=== PATIENT | male | born 1985 | race Caucasian/White ===

== ENCOUNTER 2017-02-25 09:13 | Emergency (ER) | payer SELFPAY ==
[2017-02-25 09:20] VITALS: BP 143/90
--- NOTE | 2017-02-25 09:48 | PHYS DOC ---
Past History Past Medical History: No Pertinent History Past Surgical History: No Surgical History Alcohol Use: None Drug Use: None Adult General Chief Complaint Chief Complaint: LACERATION/AVULSION HPI HPI Patient is a 31-year-old male who presents with an injury to his left great toe. He was walking barefoot outside down concrete steps and he caught the underside of his toe on a rough edge of the step and had a skin laceration/ avulsion. He denies other injury. His tetanus is not up-to-date. After it happened, he ran it under running water to clean it and has been holding pressure on it. Review of Systems Review of Systems Constitutional: Denies fever or chills [] Integument: Denies rash or skin lesions [] Current Medications Current Medications Current Medications Medications (Trade) Dose Ordered Sig/Gunnar Start Time Stop Time Status Last Admin Dose Admin Diphtheria/ Tetanus/Acell Pertussis (Boostrix) 0.5 ml ONCE ONCE 02/25/17 09:45 02/25/17 09:46 UNV Allergies Allergies Allergies Coded Allergies Type Severity Reaction Last Updated Verified No Known Drug Allergies 11/04/15 No Physical Exam Physical Exam Constitutional: Well developed, well nourished, no acute distress, non-toxic appearance. [] HENT: Normocephalic, atraumatic, bilateral external ears normal, nose normal. [ ] Eyes: conjunctiva normal, no discharge. [] Skin: Warm, dry, no erythema, no rash. [] Extremities: Left great toe: There is a flap-type avulsion of full-thickness skin from the bottom of the great toe, extending from approximately the IP crease distally. The avulsed skin is thick but does not contain deeper structures. The laceration is clean, well approximated, and hemostatic. No other injury. Neurologic: Alert and oriented X 3, normal motor function, normal sensory function, no focal deficits noted. [] Current Patient Data Vital Signs Vital Signs Date Time Temp Pulse Resp B/P (MAP) Pulse Ox O2 Delivery O2 Flow Rate FiO2 02/25/17 09:20 98.0 71 18 98 EKG EKG [] Radiology/Procedures Radiology/Procedures Procedure: Repair of laceration/avulsion of the plantar aspect of the left great toe measuring 2 cm total length The avulsed skin was already reapproximated by the patient. Dermabond and Steri- Strips were used to tape and glued the avulsed skin down. Good result. [] Course & Med Decision Making Course & Med Decision Making Pertinent Labs and Imaging studies reviewed. (See chart for details) 31-year-old male presents with partial avulsion of skin off the bottom of his great toe. After it happened, he cleaned it with running water and has been holding pressure. He states "I don't want you to clean under it, it's already clean". It does appear to be clean and I don't believe requires any further irrigation. See procedure, laceration was repaired. See instructions for plan. He was given a tetanus shot. [] Dragon Disclaimer Dragon Disclaimer This chart was dictated in whole or in part using Voice Recognition software in a busy, high-work load, and often noisy Emergency Department environment. It may contain unintended and wholly unrecognized errors or omissions. Departure Departure: Impression: Primary Impression: Laceration of left great toe w/o foreign body w/o damage to nail Disposition: 01 HOME, SELF-CARE Referrals: PCP,NO (PCP) Additional Instructions: Leave the Steri-Strips and glue on as long as possible by keeping dry and protecting with a sock at all times. If you are not wearing shoes, wear a sock. If you are wearing shoes, wear a sock. Keep mostly dry by taking a bath and elevating your foot out of the water, wash your foot with a washcloth, avoiding the area where the Steri-Strips and glue are. Today, elevate and stay off of the foot to help with pain and swelling. Ibuprofen as needed for pain. When the Steri-Strips and glue start to loosen, reinforce with a Band-Aid as long as possible. They will peel off eventually. When the skin starts to loosen and peel at the edges, trim gently with small scissors to keep it intact as long as possible. OSCAR VALENTINE MD Feb 25, 2017 09:48
[2017-02-25] MEDS ORDERED: DIPHTH,PERTUSS(ACELL),TET TOX 0.5 ML DISP.SYRIN. VAX IM ONE (09:50)
== END 2017-02-25 09:50 | disposition home or self-care (01) ==
LOC: ER 09:13
DX: S91.112A Laceration without foreign body of left great toe without damage to nail, initial encounter (principal); W22.8XXA Striking against or struck by other objects, initial encounter; Y93.01 Activity, walking, marching and hiking; Y92.89 Other specified places as the place of occurrence of the external cause; Y99.8 Other external cause status
CPT/HCPCS: 11730; 12001; 90471; 90715; 99283-25; 99284-25

== ENCOUNTER 2017-05-24 18:39 | Emergency (ER) | payer SELFPAY ==
[~2017-05-24] VITALS: Ht 190.5 cm; Wt 96.2 kg
[2017-05-24 18:50] VITALS: BP 141/70
[2017-05-24] MEDS ORDERED: BENZONATATE 100 MG CAPSULE. PO ONE (19:30)
[2017-05-24] MEDS ORDERED: ACETAMINOPHEN 500 MG TABLET PO ONE (19:30)
[2017-05-24] MEDS ORDERED: IBUPROFEN 400 MG TABLET. PO ONE (19:30)
[2017-05-24] MEDS ORDERED: BENZ100C PO (19:40)
--- NOTE | 2017-05-24 19:49 | ED.ADGEN ---
Past History Past Medical History: No Pertinent History Past Surgical History: No Surgical History Alcohol Use: None Drug Use: None Adult General HPI HPI Patient is a 31-year-old man, no significant past no history, who presents the emergency department with a complaint of cough, sore throat, headache, body aches, and low-grade fever with nasal congestion over the past several days. Patient states that his child and have just "finished having the same thing ". Patient states that he had some posttussive emesis, but his cough is dry nonproductive. He does smoke cigarettes daily. Denies any injuries, any rashes, any swelling extremities, any changes in bladder or bowel habits, any weakness, numbness, tingling, vision changes. States headache is located across the front of his head, and is much worse with coughing. He states is experiencing body aches throughout his entire back and neck. He states he last took acetaminophen this morning, more than 10 hours prior to arrival in the ED, noted to be febrile with a temperature of 100.5 arousing emergency department. He states he' s been drinking plenty of fluids. Denies any recent travel, or other concerning history. Review of Systems Review of Systems Constitutional: Fever and chills 2 days. Eyes: Denies change in visual acuity, redness, or eye pain [] HENT: Nasal congestion and sore throat.[] Respiratory: Cough, no shortness of breath, cough is nonproductive.[] Cardiovascular: No additional information not addressed in HPI [] GI: Denies abdominal pain, nausea, vomiting, bloody stools or diarrhea [] posttussive emesis. : Denies dysuria or hematuria [] Musculoskeletal: Complains of body aches. Integument: Denies rash or skin lesions [] Neurologic: Denies headache, focal weakness or sensory changes [] Endocrine: Denies polyuria or polydipsia [] Current Medications Current Medications Current Medications Medications (Trade) Dose Ordered Sig/Gunnar Start Time Stop Time Status Last Admin Dose Admin Acetaminophen (Tylenol) 1,000 mg 1X ONCE 05/24/17 19:30 05/24/17 19:31 DC 05/24/17 19:17 1,000 MG Benzonatate (Tessalon Perle) 100 mg 1X ONCE 05/24/17 19:30 05/24/17 19:31 DC 05/24/17 19:17 100 MG Fluticasone Propionate (Flonase) 2 spray 1X ONCE 05/24/17 20:00 05/24/17 20:01 DC 05/24/17 20:00 2 SPRAY Ibuprofen (Motrin) 800 mg 1X ONCE 05/24/17 19:30 05/24/17 19:31 DC 05/24/17 19:17 800 MG Allergies Allergies Allergies Coded Allergies Type Severity Reaction Last Updated Verified No Known Drug Allergies 11/04/15 No Physical Exam Physical Exam Constitutional: Well developed, well nourished, appears uncomfortable, coughing in the ED, non-toxic appearance. [] HENT: Normocephalic, atraumatic, bilateral external ears normal, oropharynx moist, no oral exudates, patient with injected oropharynx, mild post nasal drip noted, patient with turbinate swelling bilaterally, clear rhinorrhea.[] Eyes: PERRLA, EOMI, conjunctiva normal, no discharge. [] Neck: Normal range of motion, no tenderness, supple, no stridor. No meningismus. [] Cardiovascular:Heart rate regular rhythm, no murmur , S1, S2, rubs or gallops.[] Lungs & Thorax: Bilateral breath sounds clear to auscultation [] Abdomen: Bowel sounds normal, soft, no rebound, rigidity, no guarding, no tenderness, no masses, no pulsatile masses. [] Skin: Warm, dry, no erythema, no rash. [] Back: No tenderness, no CVA tenderness. [] Extremities: No tenderness, no cyanosis, no clubbing, ROM intact, no edema. Negative Homans sign.[] Neurologic: Alert and oriented X 3, normal motor function, normal sensory function, no focal deficits noted. [] Psychologic: Affect normal, judgement normal, mood normal. [] Current Patient Data Vital Signs Vital Signs Date Time Temp Pulse Resp B/P (MAP) Pulse Ox O2 Delivery O2 Flow Rate FiO2 05/24/17 19:59 98.7 05/24/17 18:50 91 20 95 Room Air EKG EKG [] Radiology/Procedures Radiology/Procedures Test x-ray: PA and lateral: 2 view: Normal cardiopulmonary silhouette, no infiltrates, no effusions, no pneumothorax, no soft tissue or bony abnormalities identified. As interpreted by me.[] Course & Med Decision Making Course & Med Decision Making Pertinent Labs and Imaging studies reviewed. (See chart for details) Patient's examination and history is consistent with a viral illness. He did not receive a flu vaccination this year. No indication for additional testing base and examination, patient did receive acetaminophen, ibuprofen, Tessalon Perle in the ED with improvement of symptoms. Chest x-ray obtained due to patient's coughing during examination was limited exam, no evidence of lower airspace disease. Discussed with patient's importance of staying well-hydrated, use [id number] medications, also of Flonase for nasal congestion, and Tessalon Perle for cough. Also discussed concerning symptoms that would prompt return, and benefits of smoking cessation. Patient does not currently have a primary care provider, list of available providers in the area was provided to him with discharge paperwork. Discharged home in stable condition with plan, prescriptions, and precautions as stated. Final Impression Final Impression [] Problems: Dragon Disclaimer Dragon Disclaimer This electronic medical record was generated, in whole or in part, using a voice recognition dictation system. Departure: Impression: Primary Impression: Viral syndrome Disposition: HOME, SELF-CARE Condition: IMPROVED Scripts Benzonatate (TESSALON PERLE) 100 Mg Capsule 100 MG PO PRN TID Y for COUGH, #12 CAP Prov: JAH ACUNA DO 05/24/17 JAH ACUNA DO May 24, 2017 19:49
[2017-05-24] MEDS ORDERED: FLUTICASONE 50MCG/NASAL SPRAY 16GM BOTTLE. NS ONE (20:00)
--- NOTE | 2017-05-25 10:01 | RAD ---
Chest, 2 views, 05/24/2017: History: Cough and fever The heart size is normal. There is mild streaky retrocardiac opacity in the left lower lobe. The right lung is clear. There is no evidence of pleural fluid. IMPRESSION: Mild left basilar atelectasis and/or pneumonitis. Note: The findings were given to personnel in the [facility] ER at 9:58 AM on 05/25/2017.
== END 2017-05-24 20:00 | disposition home or self-care (01) ==
LOC: ER 18:39
DX: B34.9 Viral infection, unspecified (principal); F17.210 Nicotine dependence, cigarettes, uncomplicated
CPT/HCPCS: 71020; 99284

== ENCOUNTER 2018-02-16 15:43 | Emergency (ER) | payer SELFPAY ==
[~2018-02-16] VITALS: Ht 190.5 cm; Wt 100.7 kg
[~2018-02-16 15:43] MED LIST: BENZ100C PO
[2018-02-16 15:56] VITALS: BP 121/85
[2018-02-16] MEDS ORDERED: IBUP400T18 PO (16:03)
[2018-02-16] MEDS ORDERED: PENI500T PO (16:03)
--- NOTE | 2018-02-16 16:04 | PHYS DOC ---
Past History Past Medical History: No Pertinent History Past Surgical History: No Surgical History Alcohol Use: None Drug Use: None Adult General Chief Complaint Chief Complaint: DENTAL PROBLEM HPI HPI 32-year-old male presenting with dental pain. The pain is a throbbing pain moderate present for 2-3 days. Nonradiating. No trismus. No tongue swelling. Review of systems is negative for stridor difficulty swallowing fevers chills neck stiffness. All other review of systems is negative unless otherwise noted in history of present illness. ED course: 32-year-old male presenting with dental pain. Well-appearing on examination. No peritonsillar abscess tongue swelling drooling or airway compromise on examination. We will discharge the patient to follow-up with the dentist today or tomorrow.The patient has been examined and was not found to have an emergency medical condition. The patient was then discharged home in stable condition to follow up with a dentist. They were to return if their symptoms worsened or if they were concerned for any reason. They were also instructed to return to the emergency department if they were unable to get the recommended and appropriate follow-up. [id number] discharge instructions and return precautions were given. Patient's questions were answered to their satisfaction. Patient is comfortable with plan. Review of Systems Review of Systems SEE ABOVE. Allergies Allergies Allergies Coded Allergies Type Severity Reaction Last Updated Verified No Known Drug Allergies 11/04/15 No Physical Exam Physical Exam SEE ABOVE Constitutional: Well developed, well nourished, no acute distress, non-toxic appearance. [] HENT: Normocephalic, atraumatic, bilateral external ears normal, oropharynx moist, no oral exudates, nose normal. Eyes: PERRLA, EOMI, conjunctiva normal, no discharge. [] Neck: Normal range of motion, no tenderness, supple, no stridor. Cardiovascular:Heart rate regular rhythm, no murmur [] Lungs & Thorax: Bilateral breath sounds clear to auscultation Abdomen: Bowel sounds normal, soft, no tenderness, no masses, no pulsatile masses. [] Skin: Warm, dry, no erythema, no rash. [] Back: No tenderness, no CVA tenderness. Extremities: No tenderness, no cyanosis, no clubbing, ROM intact, no edema. Neurologic: Alert and oriented X 3, normal motor function, normal sensory function, no focal deficits noted. [] Psychologic: Affect normal, judgement normal, mood normal. [] Current Patient Data Vital Signs Vital Signs Date Time Temp Pulse Resp B/P (MAP) Pulse Ox O2 Delivery O2 Flow Rate FiO2 02/16/18 15:56 96.8 75 16 96 Room Air EKG EKG [] Radiology/Procedures Radiology/Procedures [] Course & Med Decision Making Course & Med Decision Making Pertinent Labs and Imaging studies reviewed. (See chart for details) [] Dragon Disclaimer Dragon Disclaimer This electronic medical record was generated, in whole or in part, using a voice recognition dictation system. Departure Departure: Impression: Primary Impression: Pain, dental Disposition: HOME, SELF-CARE Condition: STABLE Referrals: PCP,NO (PCP) Patient Instructions: Dental Pain, [id number] Additional Instructions: [facility] [address] [address] General Clinic Follow-up with [facility] today or tomorrow. Thank you for allowing us to participate in your care today. Return to the emergency department you have any new or worsening symptoms, or if you are concerned for any reason. Return to emergency department if you have any new or concerning symptoms including but not limited to fever, chills, nausea, vomiting, intractable pain, any new rashes, chest pain, shortness of air , uncontrolled bleeding, difficulty breathing, and/or vision loss. Follow up as above. Call your Primary Doctor tomorrow and inform them of your visit today. If you do not have a primary care provider we are happy to provide you with a list of our primary care providers contact information. This condition should be evaluated by your primary care physician and any recommended consulting services for continued management within 2-3 days after discharge. If at any time, you are having difficulty getting into your primary care doctor or a specialist, return to the emergency department. Scripts Penicillin V Potassium (PENICILLIN V POTASSIUM) 500 Mg Tablet 1 TAB PO BID, #10 TAB 0 Refills Prov: GIFTY MCCONNELL MD 02/16/18 Ibuprofen (IBUPROFEN) 400 Mg Tablet 1 TAB PO PRN Q8HRS PRN for PAIN, #20 TAB Prov: GIFTY MCCONNELL MD 02/16/18 GIFTY MCCONNELL MD Feb 16, 2018 16:03
== END 2018-02-16 17:02 | disposition home or self-care (01) ==
LOC: ER 15:43
DX: K08.89 Other specified disorders of teeth and supporting structures (principal)
CPT/HCPCS: 99283

== ENCOUNTER 2018-02-24 18:25 | Emergency (ER) | payer SELFPAY ==
[~2018-02-24] VITALS: Ht 190.5 cm; Wt 100.2 kg
[~2018-02-24 18:25] MED LIST changes: +IBUP400T18 PO; +PENI500T PO
[2018-02-24 18:28] VITALS: BP 126/78
--- NOTE | 2018-02-24 18:39 | ED.ADGEN ---
Past History Past Medical History: No Pertinent History Past Surgical History: No Surgical History Alcohol Use: None Drug Use: None Adult General Chief Complaint Chief Complaint ".. My Lt ear hurts.. and I think the Ear drum ruptured on lt....its got fluid and blood coming out...".." I ve been swimming a lot more... probably got an ear infection... I had ear tubes twice when I was a kid..." HPI HPI Patient is a 32 year old male who presents with above hx and complaints of left ear pain with eventual drainage of blood and fluid from left ear. Drainage started today after marked increase in pain in Lt ear. Patient recently seen for dental caries and pain and recently include a course of amoxicillin. On exam patient does have decreased air conduction to left ear. Has external otitis as well as a ruptured TM on the left. Air-conduction more than bone conduction on right. Lateralization to the left on bone conduction. Patient denies any history of immunosuppression. Patient is normally healthy. Does have history dental caries. Patient does still smoke. No recent travel. No specific ill contacts. Patient does not maintain a primary care for follow-up. Review of Systems Review of Systems Constitutional: Denies fever or chills [] Eyes: Denies change in visual acuity, redness, or eye pain [] HENT: Denies nasal congestion or sore throat []complaints of left ear pain and drainage Respiratory: Denies cough or shortness of breath [] Cardiovascular: No additional information not addressed in HPI [] GI: Denies abdominal pain, nausea, vomiting, bloody stools or diarrhea [] : Denies dysuria or hematuria [] Musculoskeletal: Denies back pain or joint pain [] Integument: Denies rash or skin lesions [] Neurologic: Denies headache, focal weakness or sensory changes [] Endocrine: Denies polyuria or polydipsia [] All other systems were reviewed and found to be within normal limits, except as documented in this note. Family History Family History Noncontributory Current Medications Current Medications Current Medications Medications (Trade) Dose Ordered Sig/Gunnar Start Time Stop Time Status Last Admin Dose Admin Hydrocodone Bitartrate/ Ibuprofen (Vicoprofen 7.5-200) 1 tab 1X ONCE 02/24/18 19:30 02/24/18 19:31 02/24/18 19:09 1 TAB Neomycin/ Polymyxin/ Hydrocortisone (Cortisporin Otic) 2 drop 1X ONCE 02/24/18 19:00 02/24/18 19:02 DC 02/24/18 19:10 2 DROP Trimethoprim/ Sulfamethoxazole (Bactrim Ds) 1 tab 1X ONCE 02/24/18 19:30 02/24/18 19:31 02/24/18 19:09 1 TAB Allergies Allergies Allergies Coded Allergies Type Severity Reaction Last Updated Verified No Known Drug Allergies 11/04/15 No Physical Exam Physical Exam Constitutional: Well developed, well nourished, moderately acute distress, non- toxic appearance. [] HENT: Normocephalic, atraumatic, injected left external ear canal with ruptured TM, heme / pus Drainage from left ear., oropharynx moist, no oral exudates, nose normal. [] Eyes: PERRLA, EOMI, conjunctiva normal, no discharge. [] Neck: Normal range of motion, no tenderness, supple, no stridor. [] Cardiovascular:Heart rate regular rhythm, no murmur [] Lungs & Thorax: Bilateral breath sounds at apexes scattered wheezes auscultation [] Abdomen: Bowel sounds normal, soft, no tenderness, no masses, no pulsatile masses. [] Skin: Warm, dry, no erythema, no rash. [] Back: No tenderness, no CVA tenderness. [] Extremities: No tenderness, no cyanosis, no clubbing, ROM intact, no edema. [] Neurologic: Alert and oriented X 3, normal motor function, normal sensory function, no focal deficits noted. [] Psychologic: Affect anxious, judgement normal, mood normal. [] Current Patient Data Vital Signs Vital Signs Date Time Temp Pulse Resp B/P (MAP) Pulse Ox O2 Delivery O2 Flow Rate FiO2 02/24/18 18:28 98.1 80 18 97 Room Air EKG EKG [] Radiology/Procedures Radiology/Procedures [] Course & Med Decision Making Course & Med Decision Making Pertinent Labs and Imaging studies reviewed. (See chart for details). She'll keep water out of the ears for the next 2 weeks. Patient use Cortisporin ear drops to left ear 4 times a day. Patient to take Bactrim DS twice a day for next 10 days. Patient follow-up primary care to ensure that there is healing of the TM. Patient return of any concerns. Patient encouraged to stop smoking. Patient to consider trying use swim ear or equivalent when he started swimming again. Patient take Tylenol and ibuprofen for pain. Patient advised Benadryl 25- 50 mg may help with congestion. [] Final Impression Final Impression 1. Otitis[] left, medial and external, with ruptured TM left Dragon Disclaimer Dragon Disclaimer This electronic medical record was generated, in whole or in part, using a voice recognition dictation system. JOSE ELIAS SUMMERS MD Feb 24, 2018 18:39
[2018-02-24] MEDS ORDERED: NEOMYCIN/POLYMYXIN/HC OTIC SUSPENSION 10ML BOTTLE. AS ONE (19:00)
[2018-02-24] MEDS ORDERED: SULF1TAB24 PO (19:01)
[2018-02-24] MEDS ORDERED: SMZ/TMP 800/160MG TABLET. PO ONE (19:30)
[2018-02-24] MEDS ORDERED: HYDROcodon/IBUPROFEN 7.5/200MG 1 TAB TABLET PO ONE (19:30)
== END 2018-02-24 19:14 | disposition home or self-care (01) ==
LOC: ER 18:25
DX: H66.92 Otitis media, unspecified, left ear (principal); H60.92 Unspecified otitis externa, left ear; H72.92 Unspecified perforation of tympanic membrane, left ear
CPT/HCPCS: 99284

== ENCOUNTER 2018-08-06 19:37 | Emergency (ER) | payer SELFPAY ==
[~2018-08-06] VITALS: Ht 190.5 cm; Wt 91.0 kg
[~2018-08-06 19:37] MED LIST changes: +SULF1TAB24 PO
--- NOTE | 2018-08-06 19:40 | ED.ADGEN ---
Past History Past Medical History: No Pertinent History Past Surgical History: No Surgical History Alcohol Use: None Drug Use: None Adult General Chief Complaint Chief Complaint ". I twisted my foot and ankle carrying a dryer.. it still hurts to walk on it..." [facility] HPI Patient is a 33 year old male who presents with above hx and complaints Rt foot and ankle pain after inversion type injury carrying a dryer. Pt. has been ambulatory since injury. Distal neurovascular equal to Lt foot. Some mild mid foot edema. Some laxity o anterior draw. Pt.denies any other injury. Patient denies any other health problems. Patient does not follow with a primary care. Has injured same ankle previously. Review of Systems Review of Systems Constitutional: Denies fever or chills [] Eyes: Denies change in visual acuity, redness, or eye pain [] HENT: Denies nasal congestion or sore throat [] Respiratory: Denies cough or shortness of breath [] Cardiovascular: No additional information not addressed in HPI [] GI: Denies abdominal pain, nausea, vomiting, bloody stools or diarrhea [] : Denies dysuria or hematuria [] Musculoskeletal: Denies back pain or joint pain []complaints of right foot and ankle pain Integument: Denies rash or skin lesions [] Neurologic: Denies headache, focal weakness or sensory changes [] Endocrine: Denies polyuria or polydipsia [] All other systems were reviewed and found to be within normal limits, except as documented in this note. Family History Family History Non-contributory Current Medications Current Medications Current Medications Medications (Trade) Dose Ordered Sig/Gunnar Start Time Stop Time Status Last Admin Dose Admin Ibuprofen (Motrin) 600 mg 1X ONCE 08/06/18 20:15 08/06/18 20:19 DC 08/06/18 20:25 600 MG Allergies Allergies Allergies Coded Allergies Type Severity Reaction Last Updated Verified No Known Drug Allergies 11/04/15 No Physical Exam Physical Exam Constitutional: Moderately acute distress, non-toxic appearance. [] HENT: Normocephalic, atraumatic, bilateral external ears normal, oropharynx moist, no oral exudates, nose normal. [] Eyes: PERRLA, EOMI, conjunctiva normal, no discharge. [] Neck: Normal range of motion, no tenderness, supple, no stridor. [] Cardiovascular:Heart rate regular rhythm, no murmur [] Lungs & Thorax: Bilateral breath sounds equal apex with few scattered wheezes on auscultation [] Abdomen: Bowel sounds normal, soft, no tenderness, no masses, no pulsatile masses. [] Skin: Warm, dry, no erythema, no rash. [] Back: No tenderness, no CVA tenderness. [] Extremities: No tenderness, no cyanosis, no clubbing, ROM intact, no edema. [] Except findings as per history of present illness Neurologic: Alert and oriented X 3, normal motor function, normal sensory function, no focal deficits noted. [] Psychologic: Affect anxious, judgement normal, mood normal. [] Current Patient Data Vital Signs Vital Signs Date Time Temp Pulse Resp B/P (MAP) Pulse Ox O2 Delivery O2 Flow Rate FiO2 08/06/18 19:46 76 16 98 Room Air EKG EKG [] Radiology/Procedures Radiology/Procedures I interpretation of right foot and ankle shows no obvious fracture dislocation[] Course & Med Decision Making Course & Med Decision Making Pertinent Labs and Imaging studies reviewed. (See chart for details) Ice, elevation, Eben wrap, splint, and take Tylenol ibuprofen for pain. Marked pain may take Vicoprofen. Follow-up primary care. Return if any concerns. [] Final Impression Final Impression 1. Rt. Foot and Ankle Sprain.[] Dragon Disclaimer Dragon Disclaimer This electronic medical record was generated, in whole or in part, using a voice recognition dictation system. JOSE ELIAS SUMMERS MD Aug 06, 2018 19:40
[2018-08-06 19:46] VITALS: BP 120/60
[2018-08-06] MEDS ORDERED: IBUPROFEN 600 MG TABLET. PO ONE (20:15)
[2018-08-06] MEDS ORDERED: HYDR-1179 PO (20:18)
--- NOTE | 2018-08-07 00:07 | RAD ---
Examination: FOOT RIGHT 3V, ANKLE RIGHT 3V History: Twisted right ankle and foot, severe pain and swelling Comparison/Correlation: None Findings: 3 images of the right ankle and 3 images of the right foot were obtained. Ankle joint mortise is unremarkable. Joint spaces are adequate. No fracture or bony destruction. Soft tissues are unremarkable. Bone island of the distal tibial metaphysis noted. Impression: No acute fracture or bony destruction. Electronically signed by: Alin Mendes MD (08/07/2018 12:03 AM) [facility]
--- NOTE | 2018-08-07 00:07 | RAD ---
Examination: FOOT RIGHT 3V, ANKLE RIGHT 3V History: Twisted right ankle and foot, severe pain and swelling Comparison/Correlation: None Findings: 3 images of the right ankle and 3 images of the right foot were obtained. Ankle joint mortise is unremarkable. Joint spaces are adequate. No fracture or bony destruction. Soft tissues are unremarkable. Bone island of the distal tibial metaphysis noted. Impression: No acute fracture or bony destruction. Electronically signed by: Alin Mendes MD (08/07/2018 12:03 AM) [facility]
== END 2018-08-06 20:24 | disposition home or self-care (01) ==
LOC: ER 19:37
DX: S93.401A Sprain of unspecified ligament of right ankle, initial encounter (principal); S93.601A Unspecified sprain of right foot, initial encounter; X50.1XXA Overexertion from prolonged static or awkward postures, initial encounter; Y93.89 Activity, other specified; Y92.89 Other specified places as the place of occurrence of the external cause; Y99.8 Other external cause status
CPT/HCPCS: 29515; 73610; 73630; 99283

== ENCOUNTER 2019-03-28 18:58 | Emergency (ER) | payer SELFPAY ==
[~2019-03-28] VITALS: Ht 190.5 cm; Wt 92.1 kg
[~2019-03-28 18:58] MED LIST changes: +HYDR-1179 PO
[2019-03-28 19:12] VITALS: BP 118/77
[2019-03-28] MEDS ORDERED: CYCL-331 PO (19:47)
[2019-03-28] MEDS ORDERED: KETOROLAC 60 MG/2 ML VIAL. IM ONE (20:00)
--- NOTE | 2019-03-28 21:49 | PHYS DOC ---
Past History Past Medical History: No Pertinent History Past Surgical History: No Surgical History Alcohol Use: None Drug Use: None Adult General Chief Complaint Chief Complaint: FLANK PAIN HPI HPI Patient is a [33-year-old male presents with right upper back pain. He was lifting a table yesterday he really did not know how heavy it was going to be so he really did not protect his back the way he wanted to he lifted he felt a pop he is been having increasing dull moderate pain just medial to the right scapula it hurts to take a deep breath he's been using Advil with minimal relief there is no anterior chest pain. No other injuries no abdominal pain no other medical history at all Review of Systems Review of Systems Constitutional: Denies fever or chills [] Eyes: Denies change in visual acuity, redness, or eye pain [] HENT: Denies nasal congestion or sore throat [] Cardiovascular: No additional information not addressed in HPI [] GI: Denies abdominal pain, nausea, vomiting, bloody stools or diarrhea [] All other systems were reviewed and found to be within normal limits, except as documented in this note. Current Medications Current Medications Current Medications Medications (Trade) Dose Ordered Sig/Gunnar Start Time Stop Time Status Last Admin Dose Admin Ketorolac Tromethamine (Toradol Im) 30 mg 1X ONCE 03/28/19 20:00 03/28/19 20:01 DC 03/28/19 19:58 30 MG Allergies Allergies Allergies Coded Allergies Type Severity Reaction Last Updated Verified No Known Drug Allergies 11/04/15 No Physical Exam Physical Exam Constitutional: Well developed, well nourished, no acute distress, non-toxic appearance. [] HENT: Normocephalic, atraumatic, bilateral external ears normal, oropharynx moist, no oral exudates, nose normal. [] Eyes: PERRLA, EOMI, conjunctiva normal, no discharge. [] Neck: Normal range of motion, no tenderness, supple, no stridor. [] Cardiovascular:Heart rate regular rhythm, no murmur [] Lungs & Thorax: Bilateral breath sounds clear to auscultation []there is posterior right upper back tenderness to palpation reproduces his pain just medial to the scapula on the right no focal midline tenderness Abdomen: Bowel sounds normal, soft, no tenderness, no masses, no pulsatile masses. [] Skin: Warm, dry, no erythema, no rash. [] Back: c above Extremities: No tenderness, no cyanosis, no clubbing, ROM intact, no edema. [] Neurologic: Alert and oriented X 3, normal motor function, normal sensory function, no focal deficits noted. [] Psychologic: Affect normal, judgement normal, mood normal. [] Current Patient Data Vital Signs Vital Signs Date Time Temp Pulse Resp B/P (MAP) Pulse Ox O2 Delivery O2 Flow Rate FiO2 03/28/19 19:12 98.2 69 18 98 Room Air * Mild Temperature (Fahrenheit): * 98.2 degrees F (97.6-99.5) Patient Temperature * 98.2 degrees F (97.5-99.5) Temperature Source * Oral Blood Pressure Systolic * 118 mm Hg (100-140) Blood Pressure Diastolic * 77 mm Hg (60-100) Blood Pressure Mean * 91 mm Hg Blood Pressure Location * Right Arm Blood Pressure Source * Automatic Cuff Pulse Rate * 69 beats per minute (60-90) Pulse Assessment Method * NIBP Respiratory Rate * 18 breaths per minute (12-24) Oxygen Delivery Method EKG EKG [] Radiology/Procedures Radiology/Procedures [] Impressions: My interpretation of the x-ray and the absence of radiologist is no pneumothorax normal ribs no pneumonia Course & Med Decision Making Course & Med Decision Making Pertinent Labs and Imaging studies reviewed. (See chart for details) []suspect muscular back pain overall treated as such xray looks good pt neurologically intact Gina Disclaimer Dragjuan carlos Disclaimer This electronic medical record was generated, in whole or in part, using a voice recognition dictation system. Departure Departure: Impression: Primary Impression: Chest wall injury Disposition: 01 HOME, SELF-CARE Condition: STABLE Referrals: PCP,NO (PCP) Patient Instructions: Chest Wall Pain, [id number] Scripts Cyclobenzaprine Hcl (CYCLOBENZAPRINE HCL) 10 Mg Tablet 1 TAB PO TID PRN for PAIN, #30 TAB Prov: MIKE KUMAR MD 03/28/19 MIKE KUMAR MD Mar 28, 2019 21:49
--- NOTE | 2019-03-28 23:00 | RAD ---
RIBS RIGHT AND PA CHEST DATE: 03/28/2019 7:23 PM INDICATION: Severe right rib pain, injury COMPARISON: None available. FINDINGS: Chest: Heart size is within normal limits. No focal consolidations are seen. No evidence for pulmonary edema, pleural effusion, or pneumothorax. Bones: No radiographic evidence for a displaced, right-sided rib fracture is seen. IMPRESSION: No radiographic evidence for right-sided rib fracture. Electronically signed by: Bonifacio Guzman MD (03/28/2019 10:57 PM) [facility] [place]
== END 2019-03-28 20:06 | disposition home or self-care (01) ==
LOC: ER 18:58
DX: S29.9XXA Unspecified injury of thorax, initial encounter (principal); M54.6 Pain in thoracic spine; X50.9XXA Other and unspecified overexertion or strenuous movements or postures, initial encounter; Y93.89 Activity, other specified; Y92.89 Other specified places as the place of occurrence of the external cause; Y99.8 Other external cause status
CPT/HCPCS: 71101; 96372; 99284; J1885

== ENCOUNTER 2019-06-13 08:22 | Emergency (ER) | payer SELFPAY ==
[~2019-06-13] VITALS: Ht 193 cm; Wt 99.8 kg
[~2019-06-13 08:22] MED LIST changes: +CYCL-331 PO
[2019-06-13 08:32] VITALS: BP 131/101
[2019-06-13] MEDS ORDERED: IBUPROFEN 600 MG TABLET. PO ONE (09:00)
--- NOTE | 2019-06-13 09:00 | PHYS DOC ---
Past History Past Medical History: No Pertinent History Past Surgical History: No Surgical History Smoking: Cigarettes Alcohol Use: Rarely Drug Use: None Adult General Chief Complaint Chief Complaint: THUMB HPI HPI Patient is a 33-year-old male presents complaining of left thumb pain since yesterday. He was moving his household furniture to a new place, and his thumb became trapped between the sofa frame and the wall. Increased pain with movement. No numbness or tingling. He is left-hand dominant. There is swelling in the base of the thumb/the hand. No relief with aspirin early this morning. Pain is moderate in intensity. No radiation of the discomfort.[] Review of Systems Review of Systems Constitutional: Denies fever or chills [] Eyes: Denies change in visual acuity, redness, or eye pain [] HENT: Denies nasal congestion or sore throat [] Respiratory: Denies cough or shortness of breath [] Cardiovascular: No chest pain or palpitations[] GI: Denies abdominal pain, nausea, vomiting, bloody stools or diarrhea [] : Denies dysuria or hematuria [] Musculoskeletal: Denies back pain, see history of present illness[] Integument: Denies rash or skin lesions [] Neurologic: Denies headache, focal weakness or sensory changes [] Endocrine: Denies polyuria or polydipsia [] All other systems were reviewed and found to be within normal limits, except as documented in this note. Allergies Allergies Allergies Coded Allergies Type Severity Reaction Last Updated Verified No Known Drug Allergies 06/13/19 No Physical Exam Physical Exam Constitutional: Well developed, well nourished, no acute distress, non-toxic appearance. [] HENT: Normocephalic, atraumatic, bilateral external ears normal, oropharynx moist, no oral exudates, nose normal. [] Eyes: PERRLA, EOMI, conjunctiva normal, no discharge. [] Neck: Normal range of motion, no tenderness, supple, no stridor. [] Cardiovascular:Heart rate regular rhythm, no murmur [] Lungs & Thorax: Bilateral breath sounds clear to auscultation [] Abdomen: Not examined[] Skin: Warm, dry, no erythema, no rash. [] Back: No tenderness, no CVA tenderness. [] Extremities: Left hand has swelling on the thenar eminence. Full range of motion of the thumb itself at the MCP and interphalangeal joint. Decreased ability for opposition to the thumb and small finger. 2 point discrimination is less than 5 mm. Capillary refills less than 2 seconds. A joint above was evaluated and was normal. The other 3 extremities show: No tenderness, no cyanosis, no clubbing, ROM intact, no edema. [] Neurologic: Alert and oriented X 3, normal motor function, normal sensory function, no focal deficits noted. [] Psychologic: Affect normal, judgement normal, mood normal. [] Current Patient Data Vital Signs Vital Signs Date Time Temp Pulse Resp B/P (MAP) Pulse Ox O2 Delivery O2 Flow Rate FiO2 06/13/19 08:32 97.9 60 18 99 Room Air EKG EKG [] Radiology/Procedures Radiology/Procedures PROCEDURE: HAND LEFT 3V Examination: HAND LEFT 3V History: Pain in the left thumb and first metacarpal after a crush injury Comparison/Correlation: None Findings: Left hand 3 view x-ray exam was performed. Overlying artifact on the lateral view of the distal third and fourth phalangeal level obscures evaluation. Joint spaces are normal. No acute fracture or bone destruction. Soft tissues are unremarkable. No degenerative change. Impression: No acute process.[] Course & Med Decision Making Course & Med Decision Making Pertinent Labs and Imaging studies reviewed. (See chart for details) Emergency department course: Patient arrived, was placed in bed, and tolerated exam well. He was given ibuprofen for pain management. He was transported to and from radiology with any consultations. After return of the imaging findings, he was placed in a splint. Findings were discussed with the patient voiced understanding. He was distally neurovascularly intact after splint application. He was discharged in improved condition. Medical decision making: There is no evidence of a fracture, dislocation, neurologic, or vascular injury. Leave this to be more of a contusion versus sprain strain mechanism as he worked to get his hand out from being trapped.[] Dragon Disclaimer Dragon Disclaimer This electronic medical record was generated, in whole or in part, using a voice recognition dictation system. Departure Departure: Impression: Primary Impression: Injury of left hand Disposition: 01 HOME, SELF-CARE Condition: IMPROVED Referrals: PCP,NO (PCP) Patient Instructions: Cast or Splint Care, Hand Contusion, Hand Injuries Additional Instructions: Keep the splint clean and dry. Follow-up with your regular doctor in 2 days. If you do not have regular doctor list of local clinics will be provided. Return to the ER if worsening pain, weakness, or any other concerns. Scripts Meloxicam (MELOXICAM) 7.5 Mg Tablet 7.5 MG PO DAILY for PAIN, #20 TAB Prov: VIRGINIE PARR DO 06/13/19 Problem Qualifiers Primary Impression: Injury of left hand Encounter type: initial encounter Qualified Codes: S69.92XA - Unspecified injury of left wrist, hand and finger(s), initial encounter VIRGINIE PARR DO Jun 13, 2019 09:00
--- NOTE | 2019-06-13 09:19 | RAD ---
Examination: HAND LEFT 3V History: Pain in the left thumb and first metacarpal after a crush injury Comparison/Correlation: None Findings: Left hand 3 view x-ray exam was performed. Overlying artifact on the lateral view of the distal third and fourth phalangeal level obscures evaluation. Joint spaces are normal. No acute fracture or bone destruction. Soft tissues are unremarkable. No degenerative change. Impression: No acute process. Electronically signed by: Alin Mendes MD (06/13/2019 9:16 AM) [facility]
[2019-06-13] MEDS ORDERED: MELO7.5T29 PO (09:24)
== END 2019-06-13 09:28 | disposition home or self-care (01) ==
LOC: ER 08:22
DX: S69.92XA Unspecified injury of left wrist, hand and finger(s), initial encounter (principal); F17.210 Nicotine dependence, cigarettes, uncomplicated; W23.0XXA Caught, crushed, jammed, or pinched between moving objects, initial encounter; Y93.89 Activity, other specified; Y92.89 Other specified places as the place of occurrence of the external cause; Y99.8 Other external cause status
CPT/HCPCS: 29125; 73130; 99284

== ENCOUNTER 2019-06-19 08:53 | Emergency (ER) | payer SELFPAY ==
[~2019-06-19 08:53] MED LIST changes: +MELO7.5T29 PO
== END 2019-06-19 09:00 | disposition left against medical advice (07) ==
LOC: ER 08:53
DX: M79.643 Pain in unspecified hand (principal); Z53.21 Procedure and treatment not carried out due to patient leaving prior to being seen by health care provider

== ENCOUNTER 2020-02-20 19:37 | Emergency (ER) | payer SELFPAY ==
[~2020-02-20] VITALS: Ht 193 cm; Wt 93.0 kg
[2020-02-20 19:50] VITALS: BP 129/85
[2020-02-20] MEDS ORDERED: ACETAMINOPHEN 500 MG TABLET PO ONE (20:00)
--- NOTE | 2020-02-20 20:08 | PHYS DOC ---
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 Injury happened less than 1 hour prior to arrival when patient was shopping and missed a step down stairs. Patient reports suffering and inversion type injury of the left ankle for which he has suffered from in the past. Patient heard a pop. Patient reports limited ambulation since injury. Reports 6/10 focal, non- radiating, sharp pain. Reports palpation of bilateral malleoli of left ankle and weight-bearing exacerbate pain. Patient reports resting, elevating left leg, compressing and applying ice without significant relief prompting him to report to [facility] ED for further evaluation. 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 GI: Denies abdominal pain, nausea, vomiting, bloody stools or diarrhea : Denies dysuria or hematuria Musculoskeletal: Denies back pain. Left ankle pain as reported in HPI. Denies any knee or distal left lower extremity abnormalities. Integument: Denies rash or skin lesions Neurologic: Denies headache. Admits decreased ability to ambulate and bear weight on left lower extremity. Heightened sensation to left lower extremity. No focal neurological deficits Endocrine: Denies polyuria or polydipsia All other systems were reviewed and found to be within normal limits, except as documented in this note. Allergies Allergies Allergies Coded Allergies Type Severity Reaction Last Updated Verified No Known Drug Allergies 06/13/19 No Physical Exam Physical Exam Constitutional: Well developed, well nourished, mild distress, non-toxic appearance. HENT: Normocephalic, atraumatic, bilateral external ears normal, oropharynx mois t, no oral exudates, nose normal. Eyes: PERRLA, EOMI, conjunctiva normal, no discharge. Neck: Normal range of motion, no tenderness, supple, no stridor. Cardiovascular:Heart rate regular rhythm, no murmur Lungs & Thorax: Bilateral breath sounds clear to auscultation Abdomen: Bowel sounds normal, soft, no tenderness, no masses Skin: Warm, dry, no erythema, no rash. Back: No tenderness Extremities: No cyanosis, no clubbing. Mild focal edema to left lateral ankle. Moderate to severe pain on palpation of left lateral malleoli and left navicular bone, positive [place] ankle and foot rules. No bony tenderness of fifth base metatarsal. Unable to bear full weight during ambulation. Unremarkable examinations of bilateral knees. Unable to perform anterior and posterior drawer tests of ankle due to pain. Negative Banegas test Neurologic: Alert and oriented X 3, Motor function of left ankle +4/5 due to pain. Sensation in neurologic status fully intact, no gross focal deficits noted. Psychologic: Anxious, judgement normal, mood normal. EKG EKG [] Radiology/Procedures Radiology/Procedures Left ankle and left foot x-ray series images performed Interpreted by myself as no acute bony abnormalities. Please see chart for follow-up impression Course & Med Decision Making Course & Med Decision Making Patient seen and evaluated by myself immediately on ED arrival Vital signs grossly unremarkable, history and comprehensive physical exam non- concerning for any acute emergent/surgical intervention Positive [place] ankle rules, imaging of left lower extremity performed that showed no acute bony abnormality 1g of Tylenol administered while in ED and improved patient's pain Patient's ED course was reviewed with the patient. Discussed likely diagnosis of grade 1 versus grade 2 inversion ankle sprain. Joint decision made to discharge home with crutches, air splint, Tylenol as needed for pain control and continued supportive care for left ankle inversion injury Advised patient regarding need for close PCP follow-up with consideration for orthopedic follow-up as indicated Patient does not have a PCP, resources were provided to him prior to departure. Reiterated importance of establishing care not only for this acute illness, but for continuity of care Strict return precautions discussed at length with good understanding by patient. All questions and concerns addressed prior to departure. Patient discharged home in stable condition. Dragon Disclaimer Dragon Disclaimer This electronic medical record was generated, in whole or in part, using a voice recognition dictation system. Departure Departure: Impression: Primary Impression: Inversion sprain of left ankle Disposition: 01 HOME/RESIDENCE PRIOR TO ADM Condition: STABLE Referrals: PCP,NO (PCP) Patient Instructions: Ankle Sprain, [id number], RICE - Routine Care for Injuries, [id number] Additional Instructions: As discussed prior to your ED departure, please follow-up with local PCP for this acute illness and for continuity of care Please attempt to be seen in upcoming 2 to 7 days to ensure improvement in your symptoms Justification of Admission: Justification of Admission: Justification of Admission Dx: N/A MARY ARROYO DO Feb 20, 2020 20:08
--- NOTE | 2020-02-20 20:34 | RAD ---
Examination: ANKLE LEFT 3V, FOOT LEFT 3V History: Reason: inversion injury / Pain: Comparison/Correlation: None Findings: 3 images of the left foot and 3 images of the left ankle were obtained. Joint spaces are normal. Ankle mortise is unremarkable. No displaced fracture or bone destruction. Soft tissues are unremarkable. Punctate density subjacent to the medial malleolus probably represents an accessory ossicle. No significant degenerative change. Small bone island. Involve the posterior calcaneus. Impression: No suspicious process. Electronically signed by: Alin Mendes MD (02/20/2020 8:31 PM) [facility]
== END 2020-02-20 20:36 | disposition home or self-care (01) ==
LOC: ER 19:37
DX: S93.402A Sprain of unspecified ligament of left ankle, initial encounter (principal); F17.210 Nicotine dependence, cigarettes, uncomplicated; X50.9XXA Other and unspecified overexertion or strenuous movements or postures, initial encounter; Y93.89 Activity, other specified; Y92.89 Other specified places as the place of occurrence of the external cause; Y99.8 Other external cause status
CPT/HCPCS: 73610; 73630; 99284

== ENCOUNTER 2020-12-06 12:38 | Emergency (ER) | payer SELFPAY ==
[~2020-12-06] VITALS: Ht 190.5 cm; Wt 98.0 kg
[2020-12-06 12:57] VITALS: BP 126/79
[2020-12-06] MEDS: PENICILLIN G BENZATHINE LA 1,200,000 UNIT/2 ML DISP.SYRIN. IM ONE (13:00)
--- NOTE | 2020-12-06 13:01 | PHYS DOC ---
Past History Past Medical History: No Pertinent History Past Surgical History: No Surgical History Smoking: Cigarettes Alcohol Use: None Drug Use: None, Marijuana, Other General Adult EDM: Chief Complaint: SORE THROAT HPI: HPI: Patient is a 35-year-old male coming in for throat pain is causing difficulty swallowing since yesterday. Unsure if he has had any fevers. States he has a history of tonsil stones. Denies any significant history of strep pharyngitis, no known sick contacts. Denies any headaches, neck rigidity, cough or any other symptoms. Review of Systems: Review of Systems: All other systems within normal limits except for as noted in the HPI Current Medications: Current Meds: Current Medications Medications (Trade) Dose Ordered Sig/Gunnar Start Time Stop Time Status Last Admin Dose Admin Dexamethasone Sodium Phosphate (Decadron) 10 mg 1X ONCE 12/06/20 13:00 12/06/20 13:01 UNV Penicillin G Benzathine (Bicillin L-A) 1,200,000 unit 1X ONCE 12/06/20 13:00 12/06/20 13:01 UNV Allergies: Allergies: Allergies Coded Allergies Type Severity Reaction Last Updated Verified No Known Drug Allergies 06/13/19 No Physical Exam: PE: Constitutional: Well developed, well nourished, no acute distress, non-toxic appearance. [] HENT: Normocephalic, atraumatic, bilateral external ears normal, nose normal. Erythematous posterior pharynx and tonsils with exudates. No significant tonsillar swelling or uvular shift. [] Eyes: PERRLA, conjunctiva normal, no discharge. [] Neck: No rigidity, supple, no stridor. Anterior cervical lymphadenopathy [] Cardiovascular: Regular rate and rhythm, brisk cap refill [] Lungs & Thorax: Non labored symmetric respirations, no tachypnea or respiratory distress [] Abdomen: Soft, nondistended. Skin: Warm, dry, no erythema, no rash. [] Back: Unremarkable Extremities: No deformities, range of motion grossly intact, no lower extremity edema [] Neurologic: Alert and oriented X 3, no focal deficits noted. [] Psychologic: Affect normal, judgement normal, mood normal. [] EKG: EKG: [] Radiology/Procedures: Radiology/Procedures: [] Heart Score: C/O Chest Pain: No Risk Factors: Risk Factors: DM, Current or recent (<one month) smoker, HTN, HLP, family history of CAD, obesity. Risk Scores: Score 0 - 3: 2.5% MACE over next 6 weeks - Discharge Home Score 4 - 6: 20.3% MACE over next 6 weeks - Admit for Clinical Observation Score 7 - 10: 72.7% MACE over next 6 weeks - Early Invasive Strategies Course & Med Decision Making: Course & Med Decision Making Will empirically treat for strep pharyngitis. Gina Disclaimer: Gina Disclaimer: This electronic medical record was generated, in whole or in part, using a voice recognition dictation system. Departure Departure: Impression: Primary Impression: Strep pharyngitis Disposition: HOME / SELF CARE / HOMELESS Condition: STABLE Referrals: PCP,SARAY (PCP) Patient Instructions: Strep Throat JALIL CHAVARRIA MD December 06, 2020 13:01
[2020-12-06] MEDS: DEXAMETHASONE SOD PHOS 10 MG/ML VIAL. PO ONE (13:12)
== END 2020-12-06 13:13 | disposition home or self-care (01) ==
LOC: ER 12:38
DX: J02.0 Streptococcal pharyngitis (principal); F17.210 Nicotine dependence, cigarettes, uncomplicated
CPT/HCPCS: 96372; 99283; J0561; J1100

== ENCOUNTER 2021-11-02 09:08 | Emergency (ER) | payer SELFPAY ==
[~2021-11-02] VITALS: Ht 190.5 cm; Wt 96.7 kg
[~2021-11-02 09:08] MED LIST changes: -CYCL-331 PO; +CYCL10TA19 PO
--- NOTE | 2021-11-02 09:46 | PHYS DOC ---
Past History Past Medical History: No Pertinent History Past Surgical History: No Surgical History Smoking: Cigarettes Alcohol Use: None Drug Use: None, Marijuana, Other General Adult HPI: HPI: Patient is a 36 year old male who presents here with report of left lower quadrant dull pain which began a few days ago. The pain is intermittent. It often is worse after having a bowel movement. He reports mild nausea, no vomiting. He denies constipation or diarrhea, denies melena or hematochezia, denies fevers or chills. Denies urinary symptoms. The pain is not severe, it is only intermittent. He has no active pain at this time. No previous abdominal surgeries. No previous similar symptoms. He denies any anorexia, no change in dietary habits. He is eating and drinking well. He denies chest pain cough, dyspnea. Denies dizziness, syncope, diaphoresis or flank pain. Review of Systems: Review of Systems: As per HPI. Allergies: Allergies: Allergies Coded Allergies Type Severity Reaction Last Updated Verified No Known Drug Allergies 06/13/19 No Physical Exam: PE: Constitutional: Well developed, well nourished, no acute distress, non-toxic appearance. [] HENT: Normocephalic, atraumatic Eyes: Conjunctiva normal, no discharge. No scleral icterus. Neck: Normal range of motion, no tenderness, supple, no stridor. [] Cardiovascular:Heart rate regular rhythm, +2 radial and +2 posterior tibial pulses bilaterally. Lungs & Thorax: Lungs are clear to auscultation bilaterally without rales, rhonchi or wheezes. Abdomen: Abdomen soft, nondistended, mildly tender to palpation left lower quadrant, voluntary guarding, no rebound tenderness. No CVA tenderness. No audible bruit. No palpable masses organomegaly. No palpable pulsatile mass. No right lower quadrant tenderness. Skin: Warm, dry, no erythema, no rash. [] Back: No tenderness, no CVA tenderness, range of motion. Extremities: No tenderness, no cyanosis, no clubbing, ROM intact, no edema. [] Neurologic: Alert and oriented X 3, normal motor function, normal sensory function, no focal deficits noted. [] Psychologic: Affect normal, judgement normal, mood normal. [] EKG: EKG: [] Radiology/Procedures: Radiology/Procedures: IMAGING REPORT Signed PATIENT: NEHEMIAHLALY TRIPP JACCOUNT: [id number] : 1985 LOCATION: ER AGE: 36 SEX: M EXAM STATUS: REG ER ORD. PHYSICIAN: GUNJAN MART DO REASON: LLQ abd pain PROCEDURE: CT ABD PELV W/ IV CONTRST ONLY EXAMINATION: CT ABDOMEN+PELVIS W. Technique: Axial images with coronal and sagittal reconstructions are performed of abdomen and pelvis with intravenous contrast. 100 mL of Omnipaque -300 was administered intravenously. One or more of the following radiation dose reduction techniques was used: automated exposure control, adjustment of mA and/or KV according to patient size, and/or utilization of iterative reconstruction technique. HISTORY: 36 years Male Reason: LLQ abd pain. COMPARISON: None. FINDINGS: The lung bases appear clear. There is a tiny hiatal hernia. The liver, gallbladder, spleen, pancreas and adrenal glands appear unremarkable. The kidneys have symmetric enhancement. There is no hydronephrosis. There is inflammation around the sigmoid colon suggestive of mild diverticulitis. Few diverticula are seen in the sigmoid colon. There is no abscess. No bowel obstruction. No free peritoneal air. The appendix is normal. The urinary bladder wall is slightly thickened which could be from adjacent inflammation or related to underdistention. No focal lesion seen. The abdominal aorta is normal in caliber. No para-aortic significantly enlarged lymph node is seen. The osseous structures appear grossly unremarkable. IMPRESSION: Uncomplicated acute sigmoid diverticulitis. Electronically signed by: Dima Lee MD (11/02/2021 10:49 AM) [id number] DICTATED AND SIGNED BY: DIMA LEE MD DATE: 11/02/21 1044 CC: GUNJAN MART DO; PCP,NO ~ Heart Score: C/O Chest Pain: No Risk Factors: Risk Factors: DM, Current or recent (<one month) smoker, HTN, HLP, family history of CAD, obesity. Risk Scores: Score 0 - 3: 2.5% MACE over next 6 weeks - Discharge Home Score 4 - 6: 20.3% MACE over next 6 weeks - Admit for Clinical Observation Score 7 - 10: 72.7% MACE over next 6 weeks - Early Invasive Strategies Course & Med Decision Making: Course & Med Decision Making Pertinent Labs and Imaging studies reviewed. (See chart for details) Patient has declined pain medications or antiemetics at this time. CT findings show acute uncomplicated diverticulitis. I discussed the findings, differential diagnosis and plan of care with the patient. No indication for further invasive exams, imaging or admission at this time based on current clinical presentation. Home care instructions are provided. I recommend he follow-up with a PCP to ensure resolution and also for routine care. Return precautions are given. He verbalizes understanding. Gina Disclaimer: Gina Disclaimer: This electronic medical record was generated, in whole or in part, using a voice recognition dictation system. Departure Departure: Impression: Primary Impression: Acute diverticulitis Disposition: HOME / SELF CARE / HOMELESS Condition: STABLE Referrals: [facility] (PCP) Patient Instructions: Diverticulitis Additional Instructions: Take the full course of antibiotics. Use the pain medicine and nausea medicine as directed. Return to the ER for uncontrolled vomiting, dehydration, more severe Pain, temperature 100.4 or higher or for any other concerns. Please follow-up with your primary care physician. Scripts Hydrocodone Bit/Acetaminophen (HYDROCODONE-APAP 5-325 ) 1 Each Tablet 1 TAB PO PRN Q6HRS PRN for PAIN, #15 TAB 0 Refills Prov: BARRONGUNJAN Singh DO 11/02/21 Ondansetron (ONDANSETRON ODT) 4 Mg Tab.rapdis 1 TAB PO PRN Q6-8HRS for nausea or vomiting, #20 TAB Prov: BARRONSAVN Singh DO 11/02/21 Metronidazole (METRONIDAZOLE) 500 Mg Tablet 1 TAB PO TID for diverticulitis for 10 Days, #30 TAB 0 Refills Prov: GUNJAN MART DO 11/02/21 Ciprofloxacin Hcl (CIPROFLOXACIN HCL) 500 Mg Tablet 1 TAB PO BID for diverticulitis for 10 Days, #20 TAB Prov: GUNJAN MART Singh DO 11/02/21 GUNJAN MART DO Nov 02, 2021 09:46
[2021-11-02] MEDS ORDERED: CONTRAST GIVEN. MC PRN (10:15)
[2021-11-02] MEDS ORDERED: IOHEXOL 300 MG/ML 75 ML VIAL. IV ONE (10:30)
[2021-11-02 10:40] LABS: BASO # 0.1 x10^3/uL (0.0-0.2); BASO % 1 % (0-3); EOS # 0.1 x10^3/uL (0.0-0.7); EOS % 1 % (0-3); HEMATOCRIT 50.1 % (39.0-53.0); HEMOGLOBIN 16.8 g/dL (13.0-17.5); LYMPH # 1.5 x10^3/uL (1.0-4.8); LYMPH % 13 % (24-48); MEAN CORPUSCULAR HEMOGLOBIN 30 pg (25-35); MEAN CORPUSCULAR HGB CONC 34 g/dL (31-37); MEAN CORPUSCULAR VOLUME 88 fL (79-100); MONO # 0.9 x10^3/uL (0.0-1.1); MONO % 8 % (0-9); NEUT # 9.4 x10^3uL (1.8-7.7); NEUT % 78 % (31-73); PLATELET COUNT 238 x10^3/uL (140-400); RED BLOOD COUNT 5.68 x10^6/uL (4.30-5.70); RED CELL DISTRIBUTION WIDTH 13.8 % (11.5-14.5)
--- NOTE | 2021-11-02 10:52 | RAD ---
EXAMINATION: CT ABDOMEN+PELVIS W. Technique: Axial images with coronal and sagittal reconstructions are performed of abdomen and pelvis with intravenous contrast. 100 mL of Omnipaque -300 was administered intravenously. One or more of the following radiation dose reduction techniques was used: automated exposure control , adjustment of mA and/or KV according to patient size, and/or utilization of iterative reconstructio n technique. HISTORY: 36 years Male Reason: LLQ abd pain. COMPARISON: None. FINDINGS: The lung bases appear clear. There is a tiny hiatal hernia. The liver, gallbladder, spleen, pancreas and adrenal glands appear unremarkable. The kidneys have symmetric enhancement. There is no hydronephrosis. There is inflammation around the sigmoid colon suggestive of mild diverticulitis. Few diverticula are seen in the sigmoid colon. There is no abscess. No bowel obstruction. No free peritoneal air. The ap pendix is normal. The urinary bladder wall is slightly thickened which could be from adjacent inflammation or related t o underdistention. No focal lesion seen. The abdominal aorta is normal in caliber. No para-aortic sig nificantly enlarged lymph node is seen. The osseous structures appear grossly unremarkable. IMPRESSION: Uncomplicated acute sigmoid diverticulitis. Electronically signed by: William Lee MD (11/02/2021 10:49 AM) [id number]
[2021-11-02 10:55] LABS: CALCIUM 9.2 mg/dL (8.5-10.1); GFR 84.5; POTASSIUM 4.3 mmol/L (3.5-5.1)
[2021-11-02 10:56] LABS: BARBITURATES NEG (NEG); BENZODIAZEPINES NEG (NEG); CANNABINOIDS POS (NEG); COCAINE NEG (NEG); METHADONE NEG (NEG); OPIATES NEG (NEG); PHENCYCLIDINE NEG (NEG)
[2021-11-02 11:01] LABS: ALBUMIN 4.1 g/dL (3.4-5.0); ALBUMIN/GLOBULIN RATIO 1.1 (1.0-1.7); TOTAL BILIRUBIN 0.6 mg/dL (0.2-1.0); TOTAL PROTEIN 7.8 g/dL (6.4-8.2)
[2021-11-02 11:05] LABS: CLARITY,URINE CLEAR; COLOR,URINE YELLOW; GLUCOSE,URINE NEG (NEG)
[2021-11-02 11:06] LABS: BACTERIA,URINE 0 /HPF (0-FEW); NITRITE,URINE NEG (NEG); SQUAMOUS EPITHELIAL CELL,UR FEW /LPF; UROBILINOGEN,URINE 0.2 mg/dL (0.2 mg/dL); WBC,URINE OCC /HPF (0-4)
[2021-11-02 11:08] LABS: AMPHETAMINE/METHAMPHETAMINE NEG (NEG)
[2021-11-02] MEDS ORDERED: CIPR500T2 PO (11:26)
[2021-11-02] MEDS ORDERED: METR-34 PO (11:26)
[2021-11-02] MEDS ORDERED: HYDR-2155 PO (11:26)
[2021-11-02] MEDS ORDERED: ONDA4TAB12 PO (11:26)
[2021-11-02 11:30] VITALS: BP 132/77
== END 2021-11-02 11:10 | disposition home or self-care (01) ==
LOC: ER 09:08
DX: K57.32 Diverticulitis of large intestine without perforation or abscess without bleeding (principal); F17.210 Nicotine dependence, cigarettes, uncomplicated
CPT/HCPCS: 36415; 74177; 80053; 80307; 81001; 83690; 85025; 99285; Q9967